=== PATIENT | female | born 1960 | race Caucasian/White ===

== ENCOUNTER 2021-02-18 11:11 | Emergency (ER) | payer OTHER ==
[2021-02-18] MEDS ORDERED: Famotidine In NaCl 20 mg/50 ml Premix Bag ONE (11:35)
[2021-02-18] MEDS ORDERED: methylPREDNISolone Sod Succ/PF 125 MG/2 ML VIAL ONE (11:35)
== END 2021-02-18 12:31 | disposition home or self-care (01) ==
LOC: MADERS 11:11
DX: T63.441A Toxic effect of venom of bees, accidental (unintentional), initial encounter (principal); F17.210 Nicotine dependence, cigarettes, uncomplicated
CPT/HCPCS: 96374; 96375; J2930

== ENCOUNTER 2021-03-20 13:39 | Outpatient (CLI) | payer OTHER | END 2021-03-20 13:40 | disposition home or self-care (01) | LOC: MADRAD 13:39 | PROVIDERS: ATTEND Internal Medicine Rheumatology | DX: M79.605 Pain in left leg (principal); M81.0 Age-related osteoporosis without current pathological fracture; Z98.890 Other specified postprocedural states ==

== ENCOUNTER 2021-03-27 11:01 | Outpatient (CLI) | payer SELFPAY | END 2021-03-27 11:02 | disposition home or self-care (01) | LOC: MADCT 11:01 | PROVIDERS: ATTEND Internal Medicine Rheumatology | DX: M25.552 Pain in left hip (principal); M79.652 Pain in left thigh; M16.12 Unilateral primary osteoarthritis, left hip; M47.898 Other spondylosis, sacral and sacrococcygeal region | CPT/HCPCS: 72192 ==

== ENCOUNTER 2022-09-26 07:52 | Outpatient (CLI) | payer MEDICARE, OTHER | END 2022-09-26 07:53 | disposition home or self-care (01) | LOC: MADCT 07:52 | PROVIDERS: ATTEND Internal Medicine Rheumatology | DX: Z12.2 Encounter for screening for malignant neoplasm of respiratory organs (principal); F17.210 Nicotine dependence, cigarettes, uncomplicated; J43.9 Emphysema, unspecified | CPT/HCPCS: 71250 ==

== ENCOUNTER 2022-10-06 08:21 | Emergency (ER) | payer MEDICARE, OTHER ==
[2022-10-06] MEDS ORDERED: Sodium Chloride 0.9% 1,000 ML ONE (08:51)
[2022-10-06] MEDS ORDERED: Meclizine HCl 25 MG TAB ONE (08:51)
[2022-10-06] MEDS ORDERED: Ondansetron PF 4 MG/2 ML Vial ONE (08:51)
[2022-10-06 09:17] LABS: #Basophils 0.1 thou/uL (0.0-0.2); #Eosinphils 0.1 thou/uL (0.0-0.7); #Lymphocytes 1.5 thou/uL (1.20-3.40); #Monocytes 0.4 thou/uL (0.11-0.59); #Neutrophils 8.3 thou/uL (1.40-6.50); %Basophils 0.7 % (0.0-1.0); %Eosinophils 1.1 % (0.0-10.0); %Lymphocytes 14.4 % (21.0-51.0); %Neutrophils 79.8 % (42.0-75.0); ALT (SGPT) 19 U/L (8-55); AST (SGOT) 18 U/L (5-34); Albumin 3.9 g/dL (3.4-4.8); Alkaline Phosphatase 56 U/L (40-110); Anion Gap 10 mmol/L (10-20); BUN (Urea Nitrogen) 11 mg/dL (9.8-20.1); Bilirubin, Total 0.3 mg/dL (0.2-1.2); Calc. Creatinine Clearance 0 mL/min (70-130); Calcium 10.2 mg/dL (7.8-10.44); Carbon Dioxide 28 mmol/L (23-31); Chloride 105 mmol/L (98-107); Estimated GFR 81; Globulin 2.7 g/dL (2.4-3.5); Glucose 111 mg/dL (80-115); Hemoglobin 15.6 g/dL (12.0-16.0); Large Platelets SLIGHT (None Seen); MDiff Complete? YES; Mean Corpuscular HGB CONC 32.4 g/dL (32.0-36.0); Mean Corpuscular Hemoglobin 31.4 pg (27.0-31.0); Mean Platelet Volume 12.2 fL (7.4-10.4); Platelet Count 178 10x3/uL (130-400); Platelet Morphology Comment Appears Adequate; Potassium 4.2 mmol/L (3.5-5.1); Protein, Total 6.6 g/dL (5.8-8.1); RBC Distribution Width 12.1 % (11.5-14.5); Red Blood Cell (RBC) Count 4.97 mill/uL (4.20-5.40); Sodium 139 mmol/L (136-145); White Blood Cell (WBC) Count 10.3 10x3/uL (4.8-10.8)
[2022-10-06 09:28] LABS: Bilirubin Negative (Negative); Blood, Urine Negative (Negative); Glucose, Urine (Dipstick) Negative (Negative); Ketone, Urine Negative (Negative); Leukocyte Negative (Negative); Nitrite Negative (Negative); Protein, Urine (Dipstick) Negative (Neg-Trace); Urobilinogen 0.2 mg/dL (Less than 2)
[2022-10-06 09:34] LABS: CAUTI Indications for Culture Urological Procedure; Clarity Hazy (Clear); RBC/HPF 0-3 HPF (0-3); WBC/HPF 0-3 HPF (0-3)
[2022-10-06 09:35] LABS: Bacteria/HPF 1+ HPF (None Seen); Squamous Epithelial 0-3 HPF (0-3)
[2022-10-06 09:36] LABS: Urine Culture Reflex Yes Yes
== END 2022-10-06 10:52 | disposition home or self-care (01) ==
LOC: MADERS 08:21
DX: H81.12 Benign paroxysmal vertigo, left ear (principal); J43.9 Emphysema, unspecified; E86.0 Dehydration; R11.2 Nausea with vomiting, unspecified; F17.210 Nicotine dependence, cigarettes, uncomplicated
CPT/HCPCS: 70450; 71045; 80053; 81001; 84484; 85025; 87086; 93005; 96361; 96374; J2405; J7050